=== PATIENT | female | born 1995 | race Caucasian/White ===

== ENCOUNTER → 2021-08-22 12:48 | Outpatient (CLI) | payer OTHER, SELFPAY ==
--- NOTE | 2021-08-22 | DI.RAD.S_ITS ---
PROCEDURE: FL HIP INJECTION MR/CT LT INDICATIONS: left hip pain TECHNIQUE: The indications, alternatives, benefits, risks, and complications of the procedure were explained to the patient. Written informed consent was obtained and placed in the chart. The hip was examined fluoroscopically with the legs fixed in slight internal rotation, and a site for needle placement chosen for entry into the hip joint from an anterior approach. Care was taken to locate the common femoral artery and vein beforehand. The skin was prepped and draped in a sterile fashion, and 1% Lidocaine infiltrated from skin down to joint capsule. A spinal needle was inserted into the joint, and a small amount of iodinated contrast media injected to confirm intra-articular placement of the needle tip. This was followed by approximately 10 mL dilute solution of a gadolinium containing MR contrast agent. The needle was removed and a dressing was applied. The patient was given postprocedural instructions and sent to the MR suite for imaging. COMPARISON: [facility], , MR HIP LT W CON, 08/22/2021, 13:57. FINDINGS: A single fluoroscopic spot image demonstrates intra-articular location of injected iodinated contrast. IMPRESSION: Successful fluoroscopically guided administration of dilute Gadolinium solution into the hip joint for MR arthrogram. Dictated by: Eduin Gordon M.D. on 08/23/2021 at 14:42 Approved by: Eduin Gordon M.D. on 08/23/2021 at 14:42
--- NOTE | 2021-08-22 | DI.MRI.S_ITS ---
PROCEDURE: MR HIP LT W CON INDICATIONS: left hip pain TECHNIQUE: After the administration of 10 mL of dilute intra-articular Gadolinium contrast, coronal STIR of the bony pelvis; coronal and oblique axial T1 spin echo with fat saturation, axial T2 fast spin echo with fat saturation, sagittal T1 spin echo with and without fat saturation of the involved hip. COMPARISON: [facility], , [place] HIP INJECTION MR/CT LT, 08/22/2021, 13:27. FINDINGS: Image quality: Excellent. Bones and joints: Bone marrow of the pelvic ring and proximal femurs show normal signal throughout. No intraosseous lesions or fractures. No avascular necrosis of the femoral heads. The visualized lower lumbar spine appears normally aligned. Tendons and ligaments: The gluteus medius and minimus tendons appear intact, without associated muscle atrophy. The proximal iliotibial band appears intact. The iliopsoas tendon appears intact, without adjacent bursal fluid collections. The origin of the hamstring tendon is intact at the ischial tuberosity. The direct and indirect heads of the rectus femoris muscle origin appear intact. T1-hyperintense material within the anterior musculature is consistent with extravasation during the arthrogram injection. Labrum and cartilage: The acetabular labrum appears intact in the absence of intra-articular contrast. Cartilage surface of the femoral head appears of normal thickness. There is normal morphology of the femoral head and the acetabulum. Soft tissues: Visualized muscles demonstrate normal bulk and internal signal. Quadratus femoris muscle demonstrates no internal edema to suggest ischiofemoral impingement. The proximal sciatic neurovascular bundle appears intact. Probable left unicorn or it appearance of the uterus. Ovaries are unremarkable. The bladder is decompressed. No acute abnormality is seen in the included pelvis. IMPRESSION: 1. No acetabular labral tear or cartilage defect is seen in the left hip. 2. No acute trabecular bone injury. The visualized ligaments and tendons are intact. Dictated by: Sal Arenas M.D. on 08/22/2021 at 17:03 Approved by: Sal Arenas M.D. on 08/22/2021 at 17:11
== END ==
PROVIDERS: Referring Provider Orthopaedic Surgery; Visit Provider Orthopaedic Surgery
DX: M25.552 Pain in left hip (principal)
CPT/HCPCS: 27093; 73722; 77002

== ENCOUNTER → 2021-09-20 12:56 | Outpatient (CLI) | payer OTHER, SELFPAY ==
--- NOTE | 2021-09-20 | DI.RAD.S_ITS ---
PROCEDURE: FL JOINT INJECTION LARGE LT INDICATIONS: Pain in left hip COMPARISON: [facility], MR, MR HIP LT W CON, 08/22/2021, 13:57. TECHNIQUE: The indications, alternatives, benefits, risks, and complications of the procedure were explained to the patient. Written informed consent was obtained and placed in the chart. The patient was placed in an appropriate position on the fluoroscopy table, and a site was chosen for percutaneous access under fluoroscopic guidance. The site was prepped and draped in a sterile fashion. Local anesthetic was administered using a 1% lidocaine solution. A hypodermic or spinal needle was then used to access the symptomatic joint. Intra-articular location of the needle tip was confirmed by injecting a small amount of contrast, followed by steroid administration. The needle was then withdrawn, and a bandage applied to the puncture site. FINDINGS: Joint injected: Left hip Medications injected: 4 mL of 40 mg/mL Kenalog and 0.5% Ropivacaine mixture. Patient's pain before injection: 5 out of 10. Patient's pain after injection: 2 out of 10. Complications: None. IMPRESSION: Successful fluoroscopically guided administration of steroid and anaesthetic solution into the left hip joint. Dictated by: Ulices Gomez M.D. on 09/20/2021 at 14:09 Approved by: Ulices Gomez M.D. on 09/20/2021 at 14:11
== END ==
PROVIDERS: PCP Student in an Organized Health Care Education/Training Program; Referring Provider Orthopaedic Surgery; Visit Provider Orthopaedic Surgery
DX: M25.552 Pain in left hip (principal)
CPT/HCPCS: 20610; 77002; J2795

== ENCOUNTER 2021-10-07 03:13 | Observation (INO) | payer OTHER, SELFPAY ==
[2021-10-07] VITALS (19 sets, daily range): BP systolic 74–136; BP diastolic 43–76; PULSE 60–102; RESP 12–24; TEMP 36.3–37.7; O2SAT 91–100; BMI 31.1
--- NOTE | 2021-10-07 | PATH_ITS ---
[facility] Accession Number: [id number] . 01 Material submitted: . gallbladder - GALLBLADDER . 01 Clinical history: . ABD. PAIN . 01 Diagnosis: Gallbladder, Cholecystectomy: Mild chronic cholecystitis, cholesterolosis, and cholelithiasis. One benign cystic duct lymph node (0). MRV 10/11/2021 0838 Local . 01 Electronically signed: . Ifeoma Mclaughlin MD, Pathologist NPI- [id number] . 01 Gross description: . Received in formalin labeled with the patient's name and gallbladder consists of an intact gallbladder measuring 6.3 x 2.5 x 2.3 cm with smooth, green, glistening serosa, and a roughened, unremarkable hepatic surface. The cystic duct is received closed with a clamp, and is inked blue, and a pericystic lymph node candidate is identified measuring 0.5 cm in greatest dimension. Opening the specimen reveals the lumen to be filled with green, viscous bile and multiple yellow-brown, roughened stones measuring up to 2.4 cm in greatest dimension. The mucosa is green, velvety, and focally denuded, but no yellow discoloration or polyps are identified. The silverman average 0.3 cm thick, and no lesions are identified. Wearing Apparel Assembler sections to include the cystic duct margin, lymph node candidate, and full-thickness sections are submitted in cassette A1. ([id number]) /MRV 10/10/2021 1641 Local . 01 Pathologist provided ICD-10: K81.1, K80.60 . 01 CPT . 680535 Specimen Comment: A courtesy copy of this report has been sent to [phone] Performed at: 01 [facility] [address] [place] [address] [address], [place], [place] [id number] MD Mick Keys MD Phone: [phone]
--- NOTE | 2021-10-07 03:17 | ED.ABDPAIN ---
HPI - Abdominal Pain General Chief Complaint: Abdominal Pain Stated Complaint: ABD. PAIN Time Seen by Provider: 10/07/21 03:17 History of Present Illness HPI narrative: 26-year-old female nonsmoker presents with a chief complaint of severe epigastric pain that started after eating a dinner of pasta last evening. She states the pain is severe and worse with any motion, specifically noting bumps in the road on her drive in made the pain significantly worse. She denies any radiation of the pain and states remaining still seems to help. She has had 4 episodes of emesis the last of which had some blood streaks to it. She denies any history of the same states that she had recently been told she has gallstones. She denies fever or chills. She has not had any alcohol in many months. She denies any chance of as she has not had intercourse in some time. She denies any change in her bowel habits such as constipation or diarrhea. She has no dysuria, frequency or urgency. Her last food was at about 10:00 p.m. and states that with some saltine crackers and she has been having some sips of water over the past few hours Related Data Allergies Allergy/AdvReac Type Severity Reaction Status Date / Time No Known Drug Allergies Allergy Verified 10/07/21 03:43 Review of Systems Review of Systems Narrative: GENERAL: See HPI HEENT: Denies sinus pain, ear pain, sore throat, difficulty swallowing, dizziness. RESPIRATORY: Denies dyspnea, cough, wheezing, hemoptysis, sputum. CARDIOVASCULAR: Denies chest pain, palpitations, orthopnea, edema, GASTROINTESTINAL: See HPI : Denies dysuria, frequency, incontinence, hematuria, urinary retention. MUSCULOSKELETAL: denies weakness, joint pain, or bony pain SKIN: Denies rash, skin lesions, or other NEUROLOGIC: Denies weakness, headache, numbness, change in speech, confusion, seizures, incoordination. PSYCHIATRIC: No concerning psychosocial issues. 12 point review of systems is negative except for those stated above Exam Narrative Exam Narrative: GENERAL: [26] year old patient appears stated age. Well-developed patient, in obvious distress, in pain, tearful, holding an emesis bag HEAD: Atraumatic. Normocephalic. EYES: Pupils equal round and reactive. Extraocular motions intact. No scleral icterus. No injection or drainage. ENT: Nose without bleeding, purulent drainage. Throat without erythema, tonsillar hypertrophy or exudate. Airway patent. NECK: Trachea midline. Non tender CARDIOVASCULAR: Regular rate and rhythm without murmurs, gallops, or rubs. RESPIRATORY: Clear to auscultation. Breath sounds equal bilaterally. No wheezes, rales, or rhonchi. GASTROINTESTINAL: Abdomen soft, significant tenderness in the epigastrium and right upper quadrant to palpation, nondistended. EXTREMITIES: No edema or joint tenderness. BACK: Nontender without deformity or crepitance. No flank tenderness. NEURO: AOx3. SKIN: No rash or erythema of visible areas Initial Vital Signs Initial Vital Signs: Vital Signs Pulse Rate 101 H 10/07/21 03:15 Respiratory Rate 24 10/07/21 03:15 Blood Pressure 136/76 10/07/21 03:15 Pulse Oximetry 99 10/07/21 03:15 Oxygen Delivery Method 10/07/21 03:15 Course Orders Ordered: ED Orders 10/07/21 03:23 US abdomen limited Stat COVID19 -Nasal RAPID/Pre-Proc Stat 10/07/21 03:30 Complete Blood Count AUTO DIFF Stat Comprehensive Metabolic Panel Stat Lipase Stat Discontinued Medications Hydromorphone HCl (Hydromorphone 0.5 Mg Inj) 0.5 mg IV NOW ONE Stop: 10/07/21 03:23 Last Admin: 10/07/21 03:34 Dose: 0.5 mg Documented By: ARIA Sodium Chloride (Normal Saline 0.9%) 1,000 mls @ 1,000 mls/hr IV BOLUS ONE Stop: 10/07/21 04:21 Last Admin: 10/07/21 03:35 Dose: 1,000 mls/hr Documented By: ARIA Ondansetron HCl (Ondansetron 4 Mg/2 Ml Inj) 4 mg IV NOW ONE Stop: 10/07/21 03:23 Last Admin: 10/07/21 03:35 Dose: 4 mg Documented By: ARIA Vital Signs Vital signs: Vital Signs - 8 hr 10/07/21 03:15 Pulse Rate 101 H Respiratory Rate 24 Blood Pressure 136/76 Pulse Oximetry 99 Oxygen Delivery Method Room Air MDM - Abdominal Pain Lab Data Result diagrams: 10/07/21 03:30 10/07/21 03:30 Labs: Lab Results 06/25/22 06/25/22 Range/Units 03:30 03:30 WBC 12.5 H (4.5-11.0) X10^3/uL RBC 4.32 (4.0-5.2) X10^6/uL Hgb 12.5 (12.0-16.0) g/dL Hct 36.7 (36-46) % MCV 84.9 (80-100) fL MCH 28.8 (26-34) PG MCHC 33.9 (30-36) % RDW 13.1 (11.6-14.8) % Plt Count 376 (150-400) X10^3/uL Neut % (Auto) 61.2 (50-75) % Lymph % (Auto) 28.3 (25-40) % [place] % (Auto) 8.9 (3-14) % Eos % (Auto) 0.7 L (2-4) % Baso % (Auto) 0.9 (0-2) % Neut # (Auto) 7600 H (4331-8027) /uL Lymph # (Auto) 3500 (4822-8857) /uL [place] # (Auto) 1100 H (0-900) /uL Eos # (Auto) 100 (0-450) /uL Baso # (Auto) 100 (0-100) /uL Sodium 135 L (137-145) mmol/L Potassium 4.0 (3.4-5.1) mmol/L Chloride 101 (98-107) mmol/L Carbon Dioxide 22 (22-32) mmol/L BUN 14 (7-17) mg/dL Creatinine 0.66 (0.52-1.04) mg/dL Estimated GFR > 60 (>60) mL/min BUN/Creatinine Ratio 21.2 (6-22) Glucose 123 H (70-100) mg/dL Calcium 9.2 (8.4-10.2) mg/dL Total Bilirubin 0.6 (0.2-1.3) mg/dL AST 27 (14-36) IU/L ALT 28 (<35) IU/L Alkaline Phosphatase 75 (38-126) U/L Total Protein 8.2 (6.3-8.2) g/dL Albumin 4.7 (3.5-5.0) g/dL Globulin 3.5 (1.7-4.1) g/dL Albumin/Globulin Ratio 1.3 (1.0-2.8) Lipase 67 (23-300) U/L Discharge Plan Departure Patient Disposition: Admitted as Observation Admit Date/Time: 10/07/21 04:16 Admit Provider: Stuart Mcgill
--- NOTE | 2021-10-07 03:23 | DI.US.S_ITS ---
PROCEDURE: US ABDOMEN LIMITED INDICATIONS: SEVERE EPIGASTRIC PAIN TECHNIQUE: Real-time scanning was performed of the right upper quadrant, with image documentation. COMPARISON: None. FINDINGS: Liver: Liver is normal in size and homogeneous in echotexture. Gallbladder: Gallbladder is dilated. Wall thickness is normal. Positive sonographic Edmonds sign. No pericholecystic fluid. There are multiple calcified gallstones include new infected stone at the gallbladder neck measuring up to 1.8 centimeters. Biliary ducts: Intrahepatic bile ducts are non-dilated. Extrahepatic bile duct caliber measures 4.9 mm. Normal is 6-7 mm or less in diameter, or 10 mm or less post-cholecystectomy. Pancreas: Visualized portions of the proximal pancreas are sonographically normal. Miscellaneous: No free abdominal fluid. IMPRESSION: Borderline hydropic gallbladder with cholelithiasis and positive sonographic Edmonds sign is equivocal it concerning for cholecystitis. No biliary dilation. Agree with preliminary report. Dictated by: Js Melton D.O. on 10/07/2021 at 7:08 Approved by: Js Melton D.O. on 10/07/2021 at 7:12
[2021-10-07] MEDS: HYDROMORPHONE 0.5 MG INJ IV ×3 (03:34→14:12)
[2021-10-07] MEDS: ONDANSETRON 4 MG/2 ML INJ IV ×2 (03:35→11:25)
[2021-10-07] MEDS: SODIUM CHLORIDE 0.9% 1,000 ML 1000 ML IV (03:35)
[2021-10-07 03:43] LABS: Add Manual Diff / Slide Review NO; Basophils Absolute Auto 100 /uL (0-100); Basophils Percent Auto 0.9 % (0-2); Eosinophils Absolute Auto 100 /uL (0-450); Eosinophils Percent Auto 0.7 % (2-4); Hematocrit 36.7 % (36-46); Hemoglobin 12.5 g/dL (12.0-16.0); Lymphocytes Absolute Auto 3500 /uL (1100-4500); Lymphocytes Percent Auto 28.3 % (25-40); Mean Corpuscular HGB Conc 33.9 % (30-36); Mean Corpuscular Hemoglobin 28.8 PG (26-34); Mean Corpuscular Volume 84.9 fL (80-100); Monocytes Absolute Auto 1100 /uL (0-900); Monocytes Percent Auto 8.9 % (3-14); Neutrophils Absolute Auto 7600 /uL (1500-7000); Neutrophils Percent Auto 61.2 % (50-75); Platelet Count 376 X10^3/uL (150-400); Red Blood Cell Count 4.32 X10^6/uL (4.0-5.2); Red Cell Distribution Width 13.1 % (11.6-14.8); White Blood Cell Count 12.5 X10^3/uL (4.5-11.0)
[2021-10-07 03:48] LABS: Alanine Aminotransferase 28 IU/L (<35); Albumin 4.7 g/dL (3.5-5.0); Albumin Globulin Ratio 1.3 (1.0-2.8); Alkaline Phosphatase 75 U/L (38-126); Aspartate Aminotransferase 27 IU/L (14-36); BUN Creatinine Ratio 21.2 (6-22); Bilirubin Total 0.6 mg/dL (0.2-1.3); Blood Urea Nitrogen 14 mg/dL (7-17); Calcium 9.2 mg/dL (8.4-10.2); Carbon Dioxide 22 mmol/L (22-32); Chloride 101 mmol/L (98-107); Estimated Glomerular Filt Rate > 60 mL/min (>60); Globulin 3.5 g/dL (1.7-4.1); Glucose 123 mg/dL (70-100); HEMOLYSIS 18 (0-50); Lipase 67 U/L (23-300); Sodium 135 mmol/L (137-145); Total Protein 8.2 g/dL (6.3-8.2)
[2021-10-07 05:04] LABS: COVID19 -Nasal RAPID Negative (Negative)
[2021-10-07] MEDS: SODIUM CHLORIDE 0.9% 1,000 ML 125 ML IV (05:22)
[2021-10-07] MEDS: PIPERACILLIN/TAZO 4.5 GM in SODIUM CHLORIDE 0.9% 100 ML IV (05:48)
--- NOTE | 2021-10-07 06:52 | PC.NURSE ---
Pt. arrived to the unit at 0445 for cholecystectomy today. Pt. denies pain, and denies nausea. Pt. is a&Ox4 but a little drowsy from Hydromorphone administration while in ER. Oriented to room, bed controls and call light use. Instructed to call for any help to avoid fall, pt. verbalized understanding.
--- NOTE | 2021-10-07 09:22 | P.HP_ITS ---
History of Present Illness History of Present Illness Date Patient Seen: 10/07/21 Time Patient Seen: 09:22 Chief complaint: ABD. PAIN Narrative: 26-year-old healthy woman who presented to the emergency room with right upper quadrant pain last night. Workup was significant for WBC 13, normal total bilirubin and LFTs. Ultrasound right upper quadrant demonstrates hydropic gallbladder with a 2 cm stone lodged within the neck of the gallbladder. Patient History Family & Social History Social History: household members none Prior Living Arrangements House Safety & Behavioral: Feels Safe in Current Yes Environment Been Physically Hurt or No Threatened By a Person Tobacco & Substance use: Tobacco type e-cigarettes Smoking Status Current some day smoker alcohol intake current alcohol intake frequency holiday/special occasion Substance Use Type does not use Meds Home Medications and Allergies Home Medications Medication Instructions Recorded Confirmed Type duloxetine 40 mg capsule,delayed 40 mg PO DAILY 10/07/21 10/07/21 History release meloxicam 15 mg tablet 15 mg PO PRN PRN chronic left hip 10/07/21 10/07/21 History pain Allergies Allergy/AdvReac Type Severity Reaction Status Date / Time No Known Drug Allergies Allergy Verified 10/07/21 03:43 Exam Vital Signs (past 8 hours): - 10/07/21 03:15 10/07/21 03:45 10/07/21 04:00 Temperature Pulse Rate 101 H 86 Respiratory Rate 24 Blood Pressure 136/76 116/66 Pulse Oximetry 99 95 Oxygen Delivery Method Room Air Oxygen Flow Rate 10/07/21 04:00 10/07/21 04:30 10/07/21 04:30 Temperature Pulse Rate 60 90 Respiratory Rate Blood Pressure 121/64 Pulse Oximetry 100 97 Oxygen Delivery Method Oxygen Flow Rate 10/07/21 06:27 10/07/21 08:00 Temperature 99.9 F H Pulse Rate 87 Respiratory Rate 18 Blood Pressure 83/51 L Pulse Oximetry 95 Oxygen Delivery Method Room Air Oxygen Flow Rate 0 Oxygen Delivery Method Room Air Oxygen Flow Rate 0 Narrative Exam Narrative: General adult woman alert oriented no acute distress Chest nonlabored respirations Abdomen positive Edmonds sign. Objective Labs Result Diagrams: 10/07/21 03:30 10/07/21 03:30 Labs: Laboratory Results - last 24 hr 10/07/21 10/07/21 10/07/21 03:30 03:30 04:27 WBC 12.5 H RBC 4.32 Hgb 12.5 Hct 36.7 MCV 84.9 MCH 28.8 MCHC 33.9 RDW 13.1 Plt Count 376 Neut % (Auto) 61.2 Lymph % (Auto) 28.3 [place] % (Auto) 8.9 Eos % (Auto) 0.7 L Baso % (Auto) 0.9 Neut # (Auto) 7600 H Lymph # (Auto) 3500 [place] # (Auto) 1100 H Eos # (Auto) 100 Baso # (Auto) 100 Sodium 135 L Potassium 4.0 Chloride 101 Carbon Dioxide 22 BUN 14 Creatinine 0.66 Estimated GFR > 60 BUN/Creatinine Ratio 21.2 Glucose 123 H Calcium 9.2 Total Bilirubin 0.6 AST 27 ALT 28 Alkaline Phosphatase 75 Total Protein 8.2 Albumin 4.7 Globulin 3.5 Albumin/Globulin Ratio 1.3 Lipase 67 Nasal Screen MRSA (PCR) SARS-CoV-2 (PCR) Negative 10/07/21 06:40 WBC RBC Hgb Hct MCV MCH MCHC RDW Plt Count Neut % (Auto) Lymph % (Auto) [place] % (Auto) Eos % (Auto) Baso % (Auto) Neut # (Auto) Lymph # (Auto) [place] # (Auto) Eos # (Auto) Baso # (Auto) Sodium Potassium Chloride Carbon Dioxide BUN Creatinine Estimated GFR BUN/Creatinine Ratio Glucose Calcium Total Bilirubin AST ALT Alkaline Phosphatase Total Protein Albumin Globulin Albumin/Globulin Ratio Lipase Nasal Screen MRSA (PCR) Negative for mrsa SARS-CoV-2 (PCR) Assessment & Plan Assessment and plan (1) Acute cholecystitis: Status: Acute Assessment & Plan narrative: 26-year-old healthy woman with symptoms and radiographic evidence of acute cholecystitis. No radiographic or laboratory evidence of bile duct obstruction. I recommended that we proceed with laparoscopic cholecystectomy. Technical overview of the operation was discussed with the patient. Operative risks in cluding bleeding, infection, damage to surrounding structures, bile duct injury/leak, conversion to open were discussed. Her questions have been answered and she is in agreement with this plan Time Spent With Patient Critical Care time: I spent a total of [] minutes of critical care time on this patient's care today; this time is exclusive of procedural time.
[2021-10-07] MEDS: LACTATED RINGERS 1,000 ML 42 ML IV ×2 (09:31→11:25)
[2021-10-07] MEDS: CEFAZOLIN 2 GM/20 ML SYRINGE IV (09:58)
--- NOTE | 2021-10-07 10:07 | SUR.OPER ---
Supine on padded OR bed, head on pillow, safety belt at thigh, left arm padded and tucked at side. Right arm secured on padded arm board <90 degrees abduction. Legs uncrossed. Padded footboard in place. Tape over blanket to secure lower legs.
[2021-10-07] MEDS: BUPIVACAINE 0.25% (PF) VIAL 30 ML INJ (10:14)
--- NOTE | 2021-10-07 11:07 | PM.OP.1 ---
Operative Date/Time/Diagnoses Date of procedure: 10/07/21 Time of procedure: 11:07 Pre-op diagnosis: acute cholecystitis Post-op diagnosis: same Procedure & Clinicians Procedure: laparoscopic cholecystectomy Same procedure as scheduled: Yes Indications: symptoms and radiographic findings consistent with acute cholecystitis Surgeon: Stuart Mcgill Click Yes if Unassisted: Yes Anesthesia Type: General Operative Notes Findings: Critical view of safety established. Mild cholecystitis. Large gallstone in neck of gallbladder Specimen(s): other (gallbladder) Estimated Blood Loss (mL): 20 Procedure in detail: The patient was placed supine on the table and bilateral lower extremity compression devices were applied. Anesthesia was induced they were intubated with an endotracheal tube and received 2g of Ancef. A time-out was performed. They were prepped and draped in sterile fashion. An infraumbilical incision was made, the umbilical stalk was elevated and the fascia was sharply incised entering the abdomen atraumatically. A blunt tip 12mm balloon trocar was then inserted, pneumoperitoneum was established and inspection of the abdomen demonstrated no evidence of injury. They were placed head up and right side up and then a 11 mm port was placed high in the epigastrium and two 5mm in the right upper quadrant. The gallbladder was grasped by the fundus and retracted over the liver and retracted laterally by the infundibulum. Using electrocautery the lateral plane between the gallbladder and the liver was opened towards the fundus. The gallbladder was then retracted laterally and the medial plane was developed in the same manner. With the gallbladder mobilized the bottom of the cystic plate was visualized. The hepatocystic triangle was meticulosly skeletonized of all fat and fibrous tissue from both the front and the back. Only two structures were then clearly seen entering the gallbladder the cystic duct and the cystic artery. With the critical view of safety fully established the cystic duct was clipped twice proximally and once distally using the 10 mm Weck hemo clip applied under direct visualization and then sharply divided. The cystic artery was divided in the same fashion. The gallbladder was removed from the liver bed using electro cautery. The liver bed was then inspected for hemostasis and this was achieved. The abdomen was irrigated with sterile saline and inspection was made that showed the clips in good position. The specimen was removed using Endo-Catch. The abdomen was desufflated. The umbilical fascia was closed with 0 Vicryl in a [id number] fashion under direct visualization. Skin incisions were irrigated and closed with 4-0 Monocryl. 30 ml of 0.25% bupivacaine was infiltrated into the subcutaneous tissue of the incisions. The wounds were sealed with Dermabond. Patient emerged from anesthesia was extubated and transferred to recovery in stable condition. The sponge and instrument count at the end of the operation was correct. Complications: none Post-operative Condition: stable Disposition: same day surgery
[2021-10-07] MEDS: HYDROMORPHONE 2 MG INJ IV (11:24)
[2021-10-07] MEDS: OXYCODONE IR 5 MG TABLET PO ×2 (11:39→17:52)
--- NOTE | 2021-10-07 12:46 | CM.DANOTE ---
DCP: Case received, EMR reviewed. Checked on patient. They were getting ready to take her down to OR for lab rachelle. Placed name of this DC associate merchandise planner on board in patient's room. Was able to complete assessment based upon information currently available. Patient is a 26 year old female who admitted early this morning to the care of the hospitalist team. PCP: Dr. Duran. Payer: Amadeo Pulliam. Patient came to the hospital via private vehicle secondary to severe epigastric pain. According to notes, symptoms occurred after eating her dinner last evening. Patient also noted about 4 episodes of emesis with some blood streaks to it. Patient had noted WBC of 13. She was diagnosed with acute cholecystitis. She is having a laparoscopic cholecystectomy today. Attempted to meet with patient, she was alert, she was getting ready to go down to the OR. [place] be [place]. She lives in [place], is single. P: DCP to continue to follow. Patient should be able to go home when she is deemed medically stable. Sarah Felix RN/Table Keeper Discharge Planning/Care Management CM Discharge Assessment Start: 10/07/21 12:44 Freq: Status: Active Protocol: Document 10/07/21 12:44 (Rec: 10/07/21 12:46 [id number]) Discharge Planning Assessment Assigned Animal Tech Sarah Felix RN/Table Keeper Advance Directives? No Advance Directives on File No History Provided By Patient,Medical Record Prior Living Arrangements House Household Members none Type of transporation used prior to Drives own vehicle admit Independent with ADL's Yes Is patient alert and oriented? Yes Caregiver for Another No Barriers to Discharge No Discharge Plan Home Transportation Arrangement Family or friends Referrals Initiated None needed Whiteboard Updated in Patient Room with Yes name and ext. # of Animal Tech Review Status In Process Next Review Type Continued Stay Review
== END 2021-10-07 18:34 | disposition home or self-care (01) ==
LOC: ED 03:19 → AC 04:18 → ICU 05:00
PROVIDERS: Admitting Provider Surgery; Emergency Provider Emergency Medicine; PCP Student in an Organized Health Care Education/Training Program; Referring Provider Emergency Medicine; Visit Provider Surgery
PROC: 0FT44ZZ Resection of Gallbladder, Percutaneous Endoscopic Approach (ICD-10-PCS; CPT 47562; principal; 2021-10-07 10:00)
DX: K80.00 Calculus of gallbladder with acute cholecystitis without obstruction (principal); Z20.822 Contact with and (suspected) exposure to COVID-19; Z72.0 Tobacco use
CPT/HCPCS: 47562; 36415; 76705; 80053; 81025; 83690; 85025; 87040; 87635; 87797; 96361; 96365; 96375; 96376; 99219; 99284; C9803; G0378; J0330; J0690; J1100; J1170; J1885; J2250; J2405; J2543; J2704; J3010

== ENCOUNTER 2021-10-09 07:30 | Inpatient (IN) | payer OTHER, SELFPAY ==
[2021-10-07 06:28] VITALS: BMI 31.1
[2021-10-09] VITALS (16 sets, daily range): BP systolic 108–135; BP diastolic 58–92; PULSE 80–127; RESP 18–24; TEMP 35.9–37.7; O2SAT 87–100; BMI 32.9; BMI 32.2
[2021-10-09 07:54] LABS: Add Manual Diff / Slide Review NO; Basophils Absolute Auto 100 /uL (0-100); Basophils Percent Auto 0.7 % (0-2); Eosinophils Absolute Auto 0 /uL (0-450); Eosinophils Percent Auto 0.3 % (2-4); Hematocrit 35.4 % (36-46); Hemoglobin 11.9 g/dL (12.0-16.0); Lymphocytes Absolute Auto 3400 /uL (1100-4500); Lymphocytes Percent Auto 22.3 % (25-40); Mean Corpuscular HGB Conc 33.6 % (30-36); Mean Corpuscular Hemoglobin 28.7 PG (26-34); Mean Corpuscular Volume 85.3 fL (80-100); Monocytes Absolute Auto 800 /uL (0-900); Monocytes Percent Auto 5.5 % (3-14); Neutrophils Absolute Auto 10800 /uL (1500-7000); Neutrophils Percent Auto 71.2 % (50-75); Platelet Count 373 X10^3/uL (150-400); Red Blood Cell Count 4.15 X10^6/uL (4.0-5.2); Red Cell Distribution Width 13.3 % (11.6-14.8); White Blood Cell Count 15.2 X10^3/uL (4.5-11.0)
--- NOTE | 2021-10-09 07:55 | ED_ITS ---
HPI - Abdominal Pain General Chief Complaint: Abdominal Pain Stated Complaint: Fever, vomiting. had Gallbladder removal Sat Time Seen by Provider: 10/09/21 07:45 Source: patient Mode of arrival: Wheelchair History of Present Illness HPI narrative: Patient is a 26-year-old female status post cholecystectomy day 2. She was diagnosed with acute cholecystitis in the ED on October 07, she was discharged the same day. She said yesterday was fine. She took her pain medication she was passing gas she was eating. She woke up suddenly at 4:30 a.m. this morning with severe intense pain. She took her pain medicine did not work and came to [facility] ED for evaluation. She is in obvious distress with severe pain in her abdomen. She has had low-grade temp at home of 99. She is afebrile here. No nausea or vomiting. Related Data Home Medications Medication Instructions Recorded Confirmed duloxetine 40 mg capsule,delayed 40 mg PO DAILY 10/07/21 10/09/21 release meloxicam 15 mg tablet 15 mg PO DAILY PRN Pain (Scale 10/09/21 10/09/21 Score 4-6) Previous Rx's Medication Instructions Recorded oxycodone 5 mg tablet 5 mg PO Q6H PRN pain #20 tabs 10/07/21 Allergies Allergy/AdvReac Type Severity Reaction Status Date / Time No Known Drug Allergies Allergy Verified 10/07/21 03:43 Review of Systems Review of Systems Narrative: GENERAL: Denies chills, fatigue, malaise, fever, sweats, travel HEENT: Denies sinus pain, ear pain, sore throat, difficulty swallowing, neck pain RESPIRATORY: Denies dyspnea, cough, wheezing, hemoptysis, sputum. CARDIOVASCULAR: Denies chest pain, palpitations, orthopnea, edema GASTROINTESTINAL: See HPI : Denies dysuria, frequency, incontinence, hematuria, urinary retention, flank pain. MUSCULOSKELETAL: Denies weakness, joint pain, or bony pain SKIN: No rash, no erythema, no pruritus NEUROLOGIC: Denies weakness, dizziness, headache, numbness, change in speech, co nfusion PSYCHIATRIC: No concerning psychosocial issues. 12 point review of systems is negative except for those stated above and HPI Patient History Social History household members: none Smoking Status: Current some day smoker alcohol intake: current Smoking Status: Current some day smoker alcohol intake frequency: holidays/special occasions only Substance Use Type: does not use Exam Initial Vital Signs Initial Vital Signs: Vital Signs Temperature 96.6 F L 10/09/21 07:30 Pulse Rate 87 10/09/21 07:30 Respiratory Rate 20 10/09/21 07:30 Blood Pressure 116/68 10/09/21 07:30 Pulse Oximetry 100 10/09/21 07:30 Oxygen Delivery Method 10/09/21 07:30 GENERAL: 26-year-old female in severe pain and discomfort and in no acute distress. HEENT: Head atraumatic,EOMI, pupils reactive, face symmetric, moist mucous membranes CARDIOVASCULAR: Regular rate and rhythm without murmurs, rubs or gallops. RESPIRATORY: Breath sounds equal bilaterally, no wheezes rales or rhonchi. ABDOMEN: Soft severe pain in right upper cough quadrant and epigastric area to extreme very light touch. No distension incision sites are clean and dry with Steri-Strips in place. Mild lower abdominal bruising : No CVA tenderness EXTREMITIES: Normal range of motion, no clubbing or edema. Neurovascularly intact NEUROLOGICAL: Alert and oriented x4 SKIN: Warm, dry, no laceration, no petechiae, no rashes or lesions. Course Orders Ordered: Hydrocodone Bitart/Acetaminophen (Hydrocodone/Acet 5/325 Tablet) 1 tab PO Q4HR PRN PRN Reason: Pain, Moderate (4-6) Last Admin: 10/09/21 17:49 Dose: 1 tab Documented By: MANINDER Hydromorphone HCl (Hydromorphone 0.5 Mg Inj) 0.5 mg IV Q2H PRN PRN Reason: Breakthrough pain only (8-10) Last Admin: 10/09/21 17:16 Dose: 0.5 mg Documented By: MANINDER Lactated Ringer's (Lactated Ringers) 1,000 mls @ 125 mls/hr IV CONT MINOR Last Admin: 10/09/21 14:38 Dose: 125 mls/hr Documented By: MANINDER Naloxone HCl (Naloxone 0.4 Mg/Ml Vial) 0.2 mg IV Q2MIN PRN PRN Reason: Opiate Reversal Ondansetron HCl (Ondansetron 4 Mg/2 Ml Inj) 4 mg IV Q8HR PRN PRN Reason: Nausea And Vomiting Discontinued Medications Hydromorphone HCl (Hydromorphone 1 Mg Inj) 1 mg IV NOW ONE Stop: 10/09/21 08:11 Last Admin: 10/09/21 08:23 Dose: 1 mg Documented By: MACK Hydromorphone HCl (Hydromorphone 0.5 Mg Inj) 1 mg IV NOW ONE Stop: 10/09/21 10:13 Last Admin: 10/09/21 10:20 Dose: 1 mg Documented By: MACK Ketorolac Tromethamine (Ketorolac 30 Mg/Ml Vial) 15 mg IV NOW ONE Stop: 10/09/21 07:47 Last Admin: 10/09/21 07:59 Dose: Not Given Documented By: CHEYENNE Ketorolac Tromethamine (Ketorolac 30 Mg/Ml Vial) 15 mg IV NOW ONE Stop: 10/09/21 11:06 Last Admin: 10/09/21 11:23 Dose: 15 mg Documented By: CHEYENNE Lorazepam (Lorazepam 2 Mg/Ml Inj) 0.5 mg IV NOW ONE Stop: 10/09/21 08:44 Last Admin: 10/09/21 08:55 Dose: 0.5 mg Documented By: MACK Morphine Sulfate (Morphine 4 Mg/Ml Inj) 4 mg IV NOW ONE Stop: 10/09/21 07:57 Last Admin: 10/09/21 08:00 Dose: 4 mg Documented By: CHEYENNE Ondansetron HCl (Ondansetron 4 Mg/2 Ml Inj) 4 mg IV NOW ONE Stop: 10/09/21 07:47 Last Admin: 10/09/21 08:00 Dose: 4 mg Documented By: CHEYENNE Vital Signs Vital signs: Vital Signs - 8 hr 10/09/21 07:30 10/09/21 07:36 10/09/21 07:37 Temperature 96.6 F L Pulse Rate 87 106 H 102 H Respiratory Rate 20 Blood Pressure 116/68 Pulse Oximetry 100 95 97 Oxygen Delivery Method Room Air Oxygen Flow Rate 10/09/21 07:38 10/09/21 08:00 10/09/21 08:02 Temperature Pulse Rate 97 H Respiratory Rate 20 Blood Pressure 116/68 108/58 L Pulse Oximetry 99 Oxygen Delivery Method Oxygen Flow Rate 10/09/21 08:02 10/09/21 09:03 10/09/21 09:05 Temperature 98.5 F Pulse Rate 93 H 127 H Respiratory Rate 24 22 Blood Pressure 129/92 H Pulse Oximetry 99 87 L 95 Oxygen Delivery Method Room Air Nasal Cannula Oxygen Flow Rate 2 MDM - Abdominal Pain Lab Data Result diagrams: 10/09/21 17:30 10/09/21 17:30 Labs: Lab Results 10/09/21 10/09/21 10/09/21 Range/Units 07:40 07:40 07:58 WBC 15.2 H (4.5-11.0) X10^3/uL RBC 4.15 (4.0-5.2) X10^6/uL Hgb 11.9 L (12.0-16.0) g/dL Hct 35.4 L (36-46) % MCV 85.3 (80-100) fL MCH 28.7 (26-34) PG MCHC 33.6 (30-36) % RDW 13.3 (11.6-14.8) % Plt Count 373 (150-400) X10^3/uL Neut % (Auto) 71.2 (50-75) % Lymph % (Auto) 22.3 L (25-40) % [place] % (Auto) 5.5 (3-14) % Eos % (Auto) 0.3 L (2-4) % Baso % (Auto) 0.7 (0-2) % Neut # (Auto) 76966 H (1459-6610) /uL Lymph # (Auto) 3400 (2854-0283) /uL [place] # (Auto) 800 (0-900) /uL Eos # (Auto) 0 (0-450) /uL Baso # (Auto) 100 (0-100) /uL Sodium 139 (137-145) mmol/L Potassium 3.5 (3.4-5.1) mmol/L Chloride 101 (98-107) mmol/L Carbon Dioxide 31 (22-32) mmol/L BUN 10 (7-17) mg/dL Creatinine 0.75 (0.52-1.04) mg/dL Estimated GFR > 60 (>60) mL/min BUN/Creatinine Ratio 13.3 (6-22) Glucose 140 H (70-100) mg/dL Lactate 2.0 (0.7-2.1) mmol/L Calcium 9.0 (8.4-10.2) mg/dL Total Bilirubin 0.8 (0.2-1.3) mg/dL AST 92 H (14-36) IU/L ALT 102 H (<35) IU/L Alkaline Phosphatase 95 (38-126) U/L Total Protein 8.4 H (6.3-8.2) g/dL Albumin 4.8 (3.5-5.0) g/dL Globulin 3.6 (1.7-4.1) g/dL Albumin/Globulin Ratio 1.3 (1.0-2.8) Lipase 40 (23-300) U/L Procalcitonin (<0.5) ng/mL Serum , Qual (Negative) SARS-CoV-2 (PCR) (Negative) 10/09/21 10/09/21 10/09/21 Range/Units 07:58 07:58 09:01 WBC (4.5-11.0) X10^3/uL RBC (4.0-5.2) X10^6/uL Hgb (12.0-16.0) g/dL Hct (36-46) % MCV (80-100) fL MCH (26-34) PG MCHC (30-36) % RDW (11.6-14.8) % Plt Count (150-400) X10^3/uL Neut % (Auto) (50-75) % Lymph % (Auto) (25-40) % [place] % (Auto) (3-14) % Eos % (Auto) (2-4) % Baso % (Auto) (0-2) % Neut # (Auto) (4777-9980) /uL Lymph # (Auto) (5860-1242) /uL [place] # (Auto) (0-900) /uL Eos # (Auto) (0-450) /uL Baso # (Auto) (0-100) /uL Sodium (137-145) mmol/L Potassium (3.4-5.1) mmol/L Chloride (98-107) mmol/L Carbon Dioxide (22-32) mmol/L BUN (7-17) mg/dL Creatinine (0.52-1.04) mg/dL Estimated GFR (>60) mL/min BUN/Creatinine Ratio (6-22) Glucose (70-100) mg/dL Lactate (0.7-2.1) mmol/L Calcium (8.4-10.2) mg/dL Total Bilirubin (0.2-1.3) mg/dL AST (14-36) IU/L ALT (<35) IU/L Alkaline Phosphatase (38-126) U/L Total Protein (6.3-8.2) g/dL Albumin (3.5-5.0) g/dL Globulin (1.7-4.1) g/dL Albumin/Globulin Ratio (1.0-2.8) Lipase (23-300) U/L Procalcitonin 0.09 (<0.5) ng/mL Serum , Qual Negative (Negative) SARS-CoV-2 (PCR) Negative (Negative) Imaging Data CT scan - abdomen/pelvis: Radiologist's Impression: Signed Patient: Nellie Rajan MR#: [id number] : 1995 Acct:[id number] Age/Sex: 26 / F Date of Service: 10/09/21 Loc: ED Accession Number: [id number] ?? Procedure: CT abdomen pelvis w con Ordering Provider: Brianna Colon D.O. PROCEDURE:? CT ABDOMEN PELVIS W CON ? INDICATIONS:? s/p rachelle x 2 days severe ruq pain ? TECHNIQUE:? After the administration of IV contrast, axial sections were acquired from the lung bases to the pubic symphysis.? Coronal and sagittal reformats were performed.? For radiation dose reduction, the following was used:? automated exposure control, adjustment of mA and/or kV according to patient size. ? COMPARISON:? None. ? FINDINGS:? Image quality:? Excellent.? ? Lung bases:? Streaky opacities are present at the bases bilaterally. Heart:? No significant findings. ? ? ABDOMEN: Liver:? Liver is enlarged with steatosis measuring 16.9 cm. Gallbladder:? Gallbladder is been removed.? There is a small focus of fluid within the gallbladder fossa measuring 1.5 x 1.5 cm.? In addition, minimal perihepatic fluid is present.? Fluid is also tracking between the lateral rectus musculature to with largest dimension measuring 1.5 x 1.8 cm. ? There is stranding within the adjacent subcutaneous fat. Biliary ducts:? Unremarkable.? ? Pancreas:? Unremarkable.? ? Spleen:? Unremarkable.? ? Adrenal Glands:? Unremarkable.? ? Kidneys and Ureters:? Unremarkable.? ? ? Stomach and Bowel:? Stomach, small bowel loops, and colon are nonobstructive.? There is a low-attenuation focus measuring approximately 1.3 x 1.6 cm at the pyloric proximal duodenal C-loop.? Hounsfield units measure 13. Peritoneum:? No abnormal intraperitoneal fluid.? No free air.? ? Ventral Wall: ? There is a density within the umbilical region measuring approximately 4.5 x 4.3 cm, Hounsfield units 63.? Abdominal Nodes:? No retroperitoneal or mesenteric adenopathy by size criteria.? Vessels:? Aorta and inferior vena cava are normal in size.? ? PELVIS: Pelvic Organs:? Unremarkable.? ? Bladder:? Unremarkable.? ? Pelvic Nodes: No enlarged lymph nodes.? Miscellaneous: No inguinal hernias are seen. ? ? ? Bones:? Unremarkable.? IMPRESSION:? ? Cholecystectomy with small amount of fluid in the gallbladder fossa.? While this could be postsurgical, continued short interval follow-up is recommended as biliary leak cannot be excluded on the basis of this exam. ? ? Mild perihepatic fluid as well as fluid extending into the right lateral rectus musculature presumably postoperative.? It is nonenhancing.? However, given inflammatory change within the adjacent subcutaneous fat, recommend close interval follow-up as developing abscess cannot be definitively excluded.? ? Density at the level of the umbilicus with Hounsfield units suggestive of blood.? This may represent hematoma from laparoscopic cholecystectomy. ? Low-attenuation structure within the distal pylorus/duodenal C-loop junction.? This is suspected to represent a more focal appearance of luminal fluid.? However, if pain continues to persist in this region short interval imaging follow-up is recommended.? ? Dictated by: Marsha Lopez M.D. on 10/09/2021 at 8:46 ? ? Approved by: Marsha Lopez M.D. on 10/09/2021 at 9:16 ? MDM Narrative Medical decision making narrative: Patient overall is in severe distress with extreme pain and tenderness. Concern for postoperative complication possibly biliary leak versus perforation. CT fortunately does not show any severe complication but the patient is exquisitely tender. Mild elevation of LFTs normal bilirubin normal alk-phos. [id number] Dr. Wynn surgery has been updated patient's symptoms test results agrees that patient should be brought in for observation and he will see her. Discharge Plan Departure Patient Disposition: Admitted as Observation Clinical Impression: Post-operative pain Admit Date/Time: 10/09/21 10:09 Admit Provider: Conrado Wynn
[2021-10-09 07:59] LABS: Alanine Aminotransferase 102 IU/L (<35); Albumin 4.8 g/dL (3.5-5.0); Albumin Globulin Ratio 1.3 (1.0-2.8); Alkaline Phosphatase 95 U/L (38-126); Aspartate Aminotransferase 92 IU/L (14-36); BUN Creatinine Ratio 13.3 (6-22); Bilirubin Total 0.8 mg/dL (0.2-1.3); Blood Urea Nitrogen 10 mg/dL (7-17); Carbon Dioxide 31 mmol/L (22-32); Chloride 101 mmol/L (98-107); Estimated Glomerular Filt Rate > 60 mL/min (>60); Globulin 3.6 g/dL (1.7-4.1); Glucose 140 mg/dL (70-100); HEMOLYSIS < 15 (0-50); Lipase 40 U/L (23-300); Potassium 3.5 mmol/L (3.4-5.1); Sodium 139 mmol/L (137-145); Total Protein 8.4 g/dL (6.3-8.2)
[2021-10-09] MEDS: ONDANSETRON 4 MG/2 ML INJ IV (08:00)
[2021-10-09] MEDS: MORPHINE 4 MG/ML INJ IV (08:00)
[2021-10-09 08:21] LABS: Pregnancy Test Serum,Qual Negative (Negative)
[2021-10-09] MEDS: HYDROMORPHONE 1 MG INJ IV (08:23)
[2021-10-09 08:24] LABS: Procalcitonin 0.09 ng/mL (<0.5)
--- NOTE | 2021-10-09 08:36 | DI.CT.S_ITS ---
PROCEDURE: CT ABDOMEN PELVIS W CON INDICATIONS: s/p rachelle x 2 days severe ruq pain TECHNIQUE: After the administration of IV contrast, axial sections were acquired from the lung bases to the pubic symphysis. Coronal and sagittal reformats were performed. For radiation dose reduction, the following was used: automated exposure control, adjustment of mA and/or kV according to patient size. COMPARISON: None. FINDINGS: Image quality: Excellent. Lung bases: Streaky opacities are present at the bases bilaterally. Heart: No significant findings. ABDOMEN: Liver: Liver is enlarged with steatosis measuring 16.9 cm. Gallbladder: Gallbladder is been removed. There is a small focus of fluid within the gallbladder fossa measuring 1.5 x 1.5 cm. In addition, minimal perihepatic fluid is present. Fluid is also tracking between the lateral rectus musculature to with largest dimension measuring 1.5 x 1.8 cm. There is stranding within the adjacent subcutaneous fat. Biliary ducts: Unremarkable. Pancreas: Unremarkable. Spleen: Unremarkable. Adrenal Glands: Unremarkable. Kidneys and Ureters: Unremarkable. Stomach and Bowel: Stomach, small bowel loops, and colon are nonobstructive. There is a low-attenuation focus measuring approximately 1.3 x 1.6 cm at the pyloric proximal duodenal C-loop. Hounsfield units measure 13. Peritoneum: No abnormal intraperitoneal fluid. No free air. Ventral Wall: There is a density within the umbilical region measuring approximately 4.5 x 4.3 cm, Hounsfield units 63. Abdominal Nodes: No retroperitoneal or mesenteric adenopathy by size criteria. Vessels: Aorta and inferior vena cava are normal in size. PELVIS: Pelvic Organs: Unremarkable. Bladder: Unremarkable. Pelvic Nodes: No enlarged lymph nodes. Miscellaneous: No inguinal hernias are seen. Bones: Unremarkable. IMPRESSION: Cholecystectomy with small amount of fluid in the gallbladder fossa. While this could be postsurgical, continued short interval follow-up is recommended as biliary leak cannot be excluded on the basis of this exam. Mild perihepatic fluid as well as fluid extending into the right lateral rectus musculature presumably postoperative. It is nonenhancing. However, given inflammatory change within the adjacent subcutaneous fat, recommend close interval follow-up as developing abscess cannot be definitively excluded. Density at the level of the umbilicus with Hounsfield units suggestive of blood. This may represent hematoma from laparoscopic cholecystectomy. Low-attenuation structure within the distal pylorus/duodenal C-loop junction. This is suspected to represent a more focal appearance of luminal fluid. However, if pain continues to persist in this region short interval imaging follow-up is recommended. Dictated by: Marsha Lopez M.D. on 10/09/2021 at 8:46 Approved by: Marsha Lopez M.D. on 10/09/2021 at 9:16
[2021-10-09] MEDS: LORazepam 2 MG/ML INJ 0.5 MG IV (08:55)
[2021-10-09 09:54] LABS: COVID19 -Nasal RAPID Negative (Negative)
[2021-10-09] MEDS: HYDROMORPHONE 0.5 MG INJ 1 MG IV (10:20)
[2021-10-09] MEDS: KETOROLAC 30 MG/ML VIAL 15 MG IV (11:23)
[2021-10-09 12:21] LABS: Appearance Urine UA CLEAR; Bilirubin Urine UA NEGATIVE (NEGATIVE); Color Urine UA YELLOW; Glucose Urine UA NEGATIVE (Negative); Ketones Urine UA NEGATIVE (NEGATIVE); Leukocyte Esterase Urine UA NEGATIVE (NEGATIVE); Nitrite Urine UA NEGATIVE (Negative); Occult Blood Urine UA 3+ (Negative); Protein Urine UA NEGATIVE (Negative); Urobilinogen Urine UA 0.2 E.U./dL (0.2)
[2021-10-09 12:24] LABS: Bacteria Urine None Seen; Culture Indicated Urine Cult Not Indicated; RBC Urine 5-10/HPF (0-5/HPF); WBC Urine None Seen (0-5/HPF)
--- NOTE | 2021-10-09 12:25 | PC.NURSE ---
Admit Note Patient arrived to room 224 from ER at 1207. Independent in room, walked self to bathroom and back. Urine sent for culture. Pt reports pain to upper right abdomen 10/22, reports best it has been is 07/23. Received pain meds in ER prior to transfer. SpO2 95% on RA. HR in the 110-120s. Steri-strips to abdomen intact. Lap sites x4 present. Light purple bruising around lab site at umbilicus extending to the right. BTs hypoactive, denies nausea, abd very tender to the touch. Reports passing flatus. Oriented to call light/bed/tv controls. Call light is within reach.
[2021-10-09] MEDS: LACTATED RINGERS 1,000 ML 125 ML IV ×2 (14:38→21:52)
--- NOTE | 2021-10-09 16:20 | PM.HP.1 ---
History of Present Illness History of Present Illness Date Patient Seen: 10/09/21 Time Patient Seen: 16:21 Chief complaint: Fever, vomiting. had Gallbladder removal Sat Narrative: Nellie is a 26-year-old woman who had a laparoscopic cholecystectomy by Dr. Mcgill two days ago. She was discharged later that day. She developed sudden severe abdominal pain this morning. She came back to the ER and was noted to be tachycardic. A CT scan showed the expected degree of fluid in the gallbladder fossa. Her bilirubin and alkaline phosphatase are normal. Patient History Family & Social History Social History: household members none Prior Living Arrangements Apartment/Condo Safety & Behavioral: Feels Safe in Current Yes Environment Been Physically Hurt or No Threatened By a Person Tobacco & Substance use: Tobacco type e-cigarettes Smoking Status Current some day smoker alcohol intake current alcohol intake frequency holiday/special occasion Substance Use Type does not use Meds Home Medications and Allergies Home Medications Medication Instructions Recorded Confirmed Type duloxetine 40 mg capsule,delayed 40 mg PO DAILY 10/07/21 10/09/21 History release oxycodone 5 mg tablet 5 mg PO Q6H PRN pain #20 tabs 10/07/21 10/09/21 Rx meloxicam 15 mg tablet 15 mg PO DAILY PRN Pain (Scale 10/09/21 10/09/21 History Score 4-6) Allergies Allergy/AdvReac Type Severity Reaction Status Date / Time No Known Drug Allergies Allergy Verified 10/07/21 03:43 Exam Vital Signs (past 8 hours): - 10/09/21 09:03 10/09/21 09:05 10/09/21 11:02 Temperature 98.5 F Pulse Rate 127 H 80 Respiratory Rate 22 18 Blood Pressure 129/92 H 127/72 Pulse Oximetry 87 L 95 98 Oxygen Delivery Method Room Air Nasal Cannula Oxygen Flow Rate 2 10/09/21 11:47 10/09/21 12:20 10/09/21 12:00 Temperature 99.3 F Pulse Rate 110 H 124 H Respiratory Rate 20 21 Blood Pressure 125/67 135/76 Pulse Oximetry 96 95 Oxygen Delivery Method Room Air Oxygen Flow Rate 0 Oxygen Delivery Method Room Air Oxygen Flow Rate 0 Narrative Exam Narrative: Tender to palpation around the incisions Incisions have Steri-Strips in place and there is no erythema around the incisions No peritoneal findings Objective Labs Result Diagrams: 10/09/21 07:40 10/09/21 07:40 Labs: Laboratory Results - last 24 hr 10/09/21 10/09/21 10/09/21 07:40 07:40 07:58 WBC 15.2 H RBC 4.15 Hgb 11.9 L Hct 35.4 L MCV 85.3 MCH 28.7 MCHC 33.6 RDW 13.3 Plt Count 373 Neut % (Auto) 71.2 Lymph % (Auto) 22.3 L [place] % (Auto) 5.5 Eos % (Auto) 0.3 L Baso % (Auto) 0.7 Neut # (Auto) 76315 H Lymph # (Auto) 3400 [place] # (Auto) 800 Eos # (Auto) 0 Baso # (Auto) 100 Sodium 139 Potassium 3.5 Chloride 101 Carbon Dioxide 31 BUN 10 Creatinine 0.75 Estimated GFR > 60 BUN/Creatinine Ratio 13.3 Glucose 140 H Lactate 2.0 Calcium 9.0 Total Bilirubin 0.8 AST 92 H ALT 102 H Alkaline Phosphatase 95 Total Protein 8.4 H Albumin 4.8 Globulin 3.6 Albumin/Globulin Ratio 1.3 Lipase 40 Procalcitonin Serum , Qual Urine Color Urine Appearance Urine pH Ur Specific Rolfe Urine Protein Urine Glucose (UA) Urine Ketones Urine Occult Blood Urine Nitrate Urine Bilirubin Urine Urobilinogen Ur Leukocyte Esterase Urine RBC Urine WBC Urine Bacteria Ur Culture Indicated? SARS-CoV-2 (PCR) 10/09/21 10/09/21 10/09/21 07:58 07:58 09:01 WBC RBC Hgb Hct MCV MCH MCHC RDW Plt Count Neut % (Auto) Lymph % (Auto) [place] % (Auto) Eos % (Auto) Baso % (Auto) Neut # (Auto) Lymph # (Auto) [place] # (Auto) Eos # (Auto) Baso # (Auto) Sodium Potassium Chloride Carbon Dioxide BUN Creatinine Estimated GFR BUN/Creatinine Ratio Glucose Lactate Calcium Total Bilirubin AST ALT Alkaline Phosphatase Total Protein Albumin Globulin Albumin/Globulin Ratio Lipase Procalcitonin 0.09 Serum , Qual Negative Urine Color Urine Appearance Urine pH Ur Specific Rolfe Urine Protein Urine Glucose (UA) Urine Ketones Urine Occult Blood Urine Nitrate Urine Bilirubin Urine Urobilinogen Ur Leukocyte Esterase Urine RBC Urine WBC Urine Bacteria Ur Culture Indicated? SARS-CoV-2 (PCR) Negative 10/09/21 12:09 WBC RBC Hgb Hct MCV MCH MCHC RDW Plt Count Neut % (Auto) Lymph % (Auto) [place] % (Auto) Eos % (Auto) Baso % (Auto) Neut # (Auto) Lymph # (Auto) [place] # (Auto) Eos # (Auto) Baso # (Auto) Sodium Potassium Chloride Carbon Dioxide BUN Creatinine Estimated GFR BUN/Creatinine Ratio Glucose Lactate Calcium Total Bilirubin AST ALT Alkaline Phosphatase Total Protein Albumin Globulin Albumin/Globulin Ratio Lipase Procalcitonin Serum , Qual Urine Color Yellow Urine Appearance Clear Urine pH 5.0 Ur Specific Rolfe 1.010 Urine Protein Negative Urine Glucose (UA) Negative Urine Ketones Negative Urine Occult Blood 3+ H Urine Nitrate Negative Urine Bilirubin Negative Urine Urobilinogen 0.2 Ur Leukocyte Esterase Negative Urine RBC 5-10/hpf H Urine WBC None seen Urine Bacteria None seen Ur Culture Indicated? Cult not indicated SARS-CoV-2 (PCR) Assessment & Plan Assessment and plan (1) Post-operative pain: Status: Acute Plan Will recheck labs No indication to return to the operating room at this time If her condition deteriorates further or if her labs become significantly deranged we would proceed with a diagnostic laparoscopy Time Spent With Patient Critical Care time: I spent a total of [] minutes of critical care time on this patient's care today; this time is exclusive of procedural time. Quality VTE Deep Vein Thrombosis/Pulmonary Embolism Present on Admission: No
[2021-10-09] MEDS: HYDROMORPHONE 0.5 MG INJ IV ×3 (17:16→22:20)
[2021-10-09 17:35] LABS: Add Manual Diff / Slide Review NO; Basophils Absolute Auto 100 /uL (0-100); Basophils Percent Auto 0.4 % (0-2); Eosinophils Absolute Auto 0 /uL (0-450); Hematocrit 32.3 % (36-46); Hemoglobin 11.6 g/dL (12.0-16.0); Lymphocytes Absolute Auto 1500 /uL (1100-4500); Lymphocytes Percent Auto 12.4 % (25-40); Mean Corpuscular HGB Conc 35.8 % (30-36); Mean Corpuscular Hemoglobin 30.2 PG (26-34); Mean Corpuscular Volume 84.3 fL (80-100); Monocytes Absolute Auto 1100 /uL (0-900); Monocytes Percent Auto 9.1 % (3-14); Neutrophils Absolute Auto 9600 /uL (1500-7000); Neutrophils Percent Auto 78.1 % (50-75); Platelet Count 349 X10^3/uL (150-400); Red Blood Cell Count 3.83 X10^6/uL (4.0-5.2); Red Cell Distribution Width 13.1 % (11.6-14.8); White Blood Cell Count 12.3 X10^3/uL (4.5-11.0)
[2021-10-09 17:48] LABS: Alanine Aminotransferase 137 IU/L (<35); Albumin 4.3 g/dL (3.5-5.0); Albumin Globulin Ratio 1.3 (1.0-2.8); Alkaline Phosphatase 121 U/L (38-126); Aspartate Aminotransferase 108 IU/L (14-36); BUN Creatinine Ratio 9.2 (6-22); Bilirubin Total 1.3 mg/dL (0.2-1.3); Blood Urea Nitrogen 6 mg/dL (7-17); Calcium 8.8 mg/dL (8.4-10.2); Carbon Dioxide 31 mmol/L (22-32); Chloride 99 mmol/L (98-107); Estimated Glomerular Filt Rate > 60 mL/min (>60); Globulin 3.3 g/dL (1.7-4.1); Glucose 108 mg/dL (70-100); HEMOLYSIS < 15 (0-50); Potassium 4.2 mmol/L (3.4-5.1); Sodium 135 mmol/L (137-145); Total Protein 7.6 g/dL (6.3-8.2)
[2021-10-09] MEDS: HYDROCODONE/ACET 5/325 TABLET 1 TAB PO ×2 (17:49→21:52)
--- NOTE | 2021-10-09 19:51 | PC.NURSE ---
Addendum entered by Thais Banuelos R.N. 10/10/21 06:59: End of shift note. Care of patient from [id number]. Patient awake most of the night. c/o 7/10 pain, relieved intermittently with IV 0.5mg dilaudid and NORCO 5mg po[address] Dr[address] Wynn and gave him an update this morning and reported elevated bilirubin. Addendum entered by Thais Banuelos R.N. 10/10/21 01:46: Called Dr. Garg and informed Dr. Wynn would like him to consult on patient. Dr. Garg given update on patient's assessment, vitals and CT results. Addendum entered by Thais Banuelos R.N. 10/10/21 01:35: Called and read Dr. Wynn the CT chest results. Dr. Wynn requested that the hospitalist consult on the patient. I told Dr. Wynn I would notify Dr. Garg and request for him to give Dr. Wynn a call for doctor to doctor consult request. Addendum entered by Thais Banuelos R.N. 10/09/21 22:09: Called and notified Dr. Wynn of decreased oxygen saturation on RA. Patient c/o SOB at rest, is now on 2L, O2 Sats 95%. Patient informs when asked that she has a Nexplanon control implant for the past two years. Per Dr. Wynn's new orders get a chest CT to r/o PE. Original Note: Start of shift, patient c/o 5/10 RUQ pain at rest, with movement 8/10. O2 Saturation 87% on RA, patient unable to do CDB without crying out in pain. Placed on 2L NC, O2 Sats now 94%. Dilaudid 0,5mg IV given now for pain. IS placed at bedside with instruction.
--- NOTE | 2021-10-09 22:13 | DI.CT.S_ITS ---
PROCEDURE: CT ANGIO CHEST PE PROTOCOL INDICATIONS: r/t Chest PE TECHNIQUE: After the administration of intravenous contrast, 2 mm thick sections acquired from the pulmonary apices to the posterior costophrenic angles. 3-dimensional maximum intensity projection (MIP) coronal and sagittal reformats were then acquired through the thorax. For radiation dose reduction, the following was used: automated exposure control, adjustment of mA and/or kV according to patient size. COMPARISON: [facility], CT, CT ABDOMEN PELVIS W CON, 10/09/2021, 8:21. FINDINGS: Image quality: There is mild motion artifact. Pulmonary arteries: Pulmonary arteries demonstrate no intraluminal filling defects to suggest central pulmonary embolism. Evaluation of distal subsegmental branches is slightly limited by motion artifact. Lungs and pleura: There are increased confluent areas of consolidation in the lower lobes posteriorly. There is also mild consolidation inferiorly within the right middle lobe. A few linear areas of atelectasis are noted within the left lingula. There is a small right pleural effusion. The trachea and central airways appear patent. Mediastinum: Heart size is normal. There is a minimal amount of pericardial fluid inferiorly. No mediastinal or hilar adenopathy. Thoracic aorta is normal in caliber and enhancement. Esophagus is normal in caliber, without hiatal hernia. Bones and chest wall: No suspicious bony lesions. Ribs and thoracic spine appear intact throughout. Thyroid gland demonstrates no discrete nodules. No axillary or supraclavicular adenopathy. Abdomen: Visualized upper abdomen again demonstrates postsurgical changes consistent with recent cholecystectomy. A small amount of indistinct fluid within the gallbladder fossa with mild fat stranding likely represents residual postsurgical changes. No discrete loculated fluid collections identified. IMPRESSION: 1. No evidence of central pulmonary embolism. 2. Increased bibasilar consolidation within the lower lobes as well as consolidation in the inferior right middle lobe. The findings are suggestive of pneumonia possibly from aspiration. The differential also includes postsurgical atelectasis, but the degree of consolidation is atypical. 3. Small right pleural effusion. 4. Small amount of pericardial fluid inferiorly. 5. Small amount of fluid and fat stranding in the gallbladder fossa likely represents residual sequelae of recent surgery. No loculated fluid collections identified. Dictated by: Mick Avery M.D. on 10/10/2021 at 0:32 Approved by: Mick Avery M.D. on 10/10/2021 at 0:39
[2021-10-10 00:55] VITALS: BP 102/62; PULSE 96; RESP 18; TEMP 37.2; O2SAT 96
[2021-10-10] MEDS: HYDROCODONE/ACET 5/325 TABLET 1 TAB PO ×2 (01:26→05:39)
--- NOTE | 2021-10-10 02:05 | PM.CN ---
History of Present Illness Consult details Date Patient Seen: 10/10/21 Time Patient Seen: 06:00 Chief complaint: Fever, vomiting. had Gallbladder removal Sat Narrative: Ms. Rajan is a 26W with no previous medical history who recently was admitted for abdominal pain, found to have cholecystitis and underwent cholecystectomy on 10/07. She was able to be discharged. She was then readmitted on 10/09 for abdominal pain, tachycardia. She had been having vomiting prior to her first admission. She had repeat CT on admission and this is being monitored by surgery for any complication that would require operative intervention. Tonight she developed shortness of breath with a drop in her oxygen saturation and she was placed on 2L nasal cannula. CTA of her chest was ordered and was negative for PE, but did show bilateral lower lobe consolidation and right middle lobe consolidation, suspicious for pneumonia. Consultation was recommended for medicine to help manage her respiratory issues. Family history: family history of lung disease, she is not able to say what disease Social history: vapes, no tobacco, alcohol, or drug use Meds Home Medications and Allergies Home Medications Medication Instructions Recorded Confirmed Type duloxetine 40 mg capsule,delayed 40 mg PO DAILY 10/07/21 10/09/21 History release oxycodone 5 mg tablet 5 mg PO Q6H PRN pain #20 tabs 10/07/21 10/09/21 Rx meloxicam 15 mg tablet 15 mg PO DAILY PRN Pain (Scale 10/09/21 10/09/21 History Score 4-6) Allergies Allergy/AdvReac Type Severity Reaction Status Date / Time No Known Drug Allergies Allergy Verified 10/07/21 03:43 Review of Systems Review of Systems Narrative: 14 systems reviewed and negative aside from what is noted in HPI Exam Vital Signs (past 8 hours): - 10/09/21 20:02 10/09/21 20:04 10/09/21 19:40 Temperature 99.9 F H Pulse Rate 112 H 115 H 108 H Respiratory Rate 22 18 Blood Pressure 117/70 Pulse Oximetry 92 95 87 L Oxygen Delivery Method Oxygen Flow Rate 2 4 0 10/09/21 21:55 10/09/21 21:55 10/09/21 20:00 Temperature Pulse Rate Respiratory Rate Blood Pressure Pulse Oximetry 98 94 Oxygen Delivery Method Room Air Oxygen Flow Rate 4 2 10/10/21 00:55 Temperature 98.9 F Pulse Rate 96 H Respiratory Rate 18 Blood Pressure 102/62 Pulse Oximetry 96 Oxygen Delivery Method Oxygen Flow Rate 2 Oxygen Delivery Method Room Air Oxygen Flow Rate 2 Narrative Exam Narrative: GEN: in distress from abdominal pain HEENT: moist mucous membranes, PERRL NECK: trachea midline, no JVD CV: regular rate and rhythm, no murmurs PULM: basilar coarse breath sounds ABD: tender to palpation around incision, soft EXT: warm and well perfused with no edema NEURO: awake, alert, no focal deficits Objective Labs Result Diagrams: 10/09/21 17:30 10/09/21 17:30 Labs: Laboratory Results - last 24 hr 10/09/21 10/09/21 10/09/21 07:40 07:40 07:58 WBC 15.2 H RBC 4.15 Hgb 11.9 L Hct 35.4 L MCV 85.3 MCH 28.7 MCHC 33.6 RDW 13.3 Plt Count 373 Neut % (Auto) 71.2 Lymph % (Auto) 22.3 L Emanuel % (Auto) 5.5 Eos % (Auto) 0.3 L Baso % (Auto) 0.7 Neut # (Auto) 63648 H Lymph # (Auto) 3400 Emanuel # (Auto) 800 Eos # (Auto) 0 Baso # (Auto) 100 Sodium 139 Potassium 3.5 Chloride 101 Carbon Dioxide 31 BUN 10 Creatinine 0.75 Estimated GFR > 60 BUN/Creatinine Ratio 13.3 Glucose 140 H Lactate 2.0 Calcium 9.0 Total Bilirubin 0.8 AST 92 H ALT 102 H Alkaline Phosphatase 95 Total Protein 8.4 H Albumin 4.8 Globulin 3.6 Albumin/Globulin Ratio 1.3 Lipase 40 Procalcitonin Serum , Qual Urine Color Urine Appearance Urine pH Ur Specific [place] Urine Protein Urine Glucose (UA) Urine Ketones Urine Occult Blood Urine Nitrate Urine Bilirubin Urine Urobilinogen Ur Leukocyte Esterase Urine RBC Urine WBC Urine Bacteria Ur Culture Indicated? SARS-CoV-2 (PCR) 10/09/21 10/09/21 10/09/21 07:58 07:58 09:01 WBC RBC Hgb Hct MCV MCH MCHC RDW Plt Count Neut % (Auto) Lymph % (Auto) Emanuel % (Auto) Eos % (Auto) Baso % (Auto) Neut # (Auto) Lymph # (Auto) Emanuel # (Auto) Eos # (Auto) Baso # (Auto) Sodium Potassium Chloride Carbon Dioxide BUN Creatinine Estimated GFR BUN/Creatinine Ratio Glucose Lactate Calcium Total Bilirubin AST ALT Alkaline Phosphatase Total Protein Albumin Globulin Albumin/Globulin Ratio Lipase Procalcitonin 0.09 Serum , Qual Negative Urine Color Urine Appearance Urine pH Ur Specific [place] Urine Protein Urine Glucose (UA) Urine Ketones Urine Occult Blood Urine Nitrate Urine Bilirubin Urine Urobilinogen Ur Leukocyte Esterase Urine RBC Urine WBC Urine Bacteria Ur Culture Indicated? SARS-CoV-2 (PCR) Negative 10/09/21 10/09/21 10/09/21 12:09 17:30 17:30 WBC 12.3 H RBC 3.83 L Hgb 11.6 L Hct 32.3 L MCV 84.3 MCH 30.2 MCHC 35.8 RDW 13.1 Plt Count 349 Neut % (Auto) 78.1 H Lymph % (Auto) 12.4 L Emanuel % (Auto) 9.1 Eos % (Auto) 0.0 L Baso % (Auto) 0.4 Neut # (Auto) 9600 H Lymph # (Auto) 1500 Emanuel # (Auto) 1100 H Eos # (Auto) 0 Baso # (Auto) 100 Sodium 135 L Potassium 4.2 Chloride 99 Carbon Dioxide 31 BUN 6 L Creatinine 0.65 Estimated GFR > 60 BUN/Creatinine Ratio 9.2 Glucose 108 H Lactate Calcium 8.8 Total Bilirubin 1.3 AST 108 H ALT 137 H Alkaline Phosphatase 121 Total Protein 7.6 Albumin 4.3 Globulin 3.3 Albumin/Globulin Ratio 1.3 Lipase Procalcitonin Serum , Qual Urine Color Yellow Urine Appearance Clear Urine pH 5.0 Ur Specific [place] 1.010 Urine Protein Negative Urine Glucose (UA) Negative Urine Ketones Negative Urine Occult Blood 3+ H Urine Nitrate Negative Urine Bilirubin Negative Urine Urobilinogen 0.2 Ur Leukocyte Esterase Negative Urine RBC 5-10/hpf H Urine WBC None seen Urine Bacteria None seen Ur Culture Indicated? Cult not indicated SARS-CoV-2 (PCR) PFSH Social History household members: none Tobacco & Substance Use Smoking Status: Current some day smoker alcohol intake: current Assessment & Plan Assessment & Plan narrative: Ms. Rajan is a 26W s/p recent cholecystectomy for cholecystitis readmitted with abdominal pain found to have hypoxemia and pneumonia. 1. Aspiration pneumonia causing acute respiratory failure -suspect etiology is aspiration pneumonia secondary to vomiting -CTA negative for PE -COVID negative -small pericardial effusion noted of unclear significance, raises possibility of viral etiology, order respiratory panel -due to pericardial fluid, order troponin, but doubt cardiac etiology -other less likely etiology to consider is atelectasis, and less likely rare complication from cholecystectomy including bile leak, paralyzed right hemidiaphragm -contine O2 for goal >93% -sputum culture ordered -start zosyn -wean oxygen as able -plan for 7-10 day course of antibiotics, can switch to PO augmentin 875/125 BID on discharge 2. Abdominal pain and vomiting s/p cholecystectomy for recent cholecystitis -surgery managing CODE: Full Proxy: [place] Rajan I have utilized all available resources to reconcile the patient's home medications Time Spent With Patient Critical Care time: I spent a total of [] minutes of critical care time on this patient's care today; this time is exclusive of procedural time.
[2021-10-10] MEDS: HYDROMORPHONE 0.5 MG INJ IV ×7 (02:40→19:46)
[2021-10-10] MEDS: PIPERACILLIN/TAZO 3.375 GM in SODIUM CHLORIDE 0.9% 100 ML IV ×3 (02:42→18:03)
[2021-10-10 04:00] VITALS: BP 106/61; PULSE 98; RESP 18; TEMP 37.1; O2SAT 91
--- NOTE | 2021-10-10 05:09 | DI.RAD.S_ITS ---
PROCEDURE: XR CHEST 1V INDICATIONS: s/p cholecystectomy worse sob, worse pna? elevated diaphrag? TECHNIQUE: One view of the chest was acquired. COMPARISON: [facility], CT, CT ANGIO CHEST PE PROTOCOL, 10/09/2021, 22:18. FINDINGS: Surgical changes and devices: None. Lungs and pleura: Trace right-sided pleural fluid collection. Patchy right basilar and left perihilar lung opacities. Right hemidiaphragm is mildly elevated. Mediastinum: Mediastinal contours appear normal. Heart size is normal. Bones and chest wall: No suspicious bony lesions. Overlying soft tissues appear unremarkable. IMPRESSION: 1. Patchy bilateral lung airspace opacities concerning for pneumonia. 2. Trace right-sided pleural fluid collection. 3. Mild elevation right hemidiaphragm. Dictated by: Harmony Preston MD, PhD on 10/10/2021 at 8:01 Approved by: Harmony Preston MD, PhD on 10/10/2021 at 8:03
[2021-10-10] MEDS: ONDANSETRON 4 MG/2 ML INJ IV ×2 (05:40→19:44)
[2021-10-10 05:42] LABS: Add Manual Diff / Slide Review NO; Basophils Absolute Auto 0 /uL (0-100); Basophils Percent Auto 0.6 % (0-2); Eosinophils Absolute Auto 100 /uL (0-450); Eosinophils Percent Auto 0.8 % (2-4); Hemoglobin 10.8 g/dL (12.0-16.0); Lymphocytes Absolute Auto 1900 /uL (1100-4500); Lymphocytes Percent Auto 23.8 % (25-40); Mean Corpuscular HGB Conc 34.8 % (30-36); Mean Corpuscular Hemoglobin 29.5 PG (26-34); Mean Corpuscular Volume 84.6 fL (80-100); Monocytes Absolute Auto 700 /uL (0-900); Monocytes Percent Auto 9.5 % (3-14); Neutrophils Absolute Auto 5100 /uL (1500-7000); Neutrophils Percent Auto 65.3 % (50-75); Platelet Count 311 X10^3/uL (150-400); Red Blood Cell Count 3.66 X10^6/uL (4.0-5.2); Red Cell Distribution Width 13.3 % (11.6-14.8); White Blood Cell Count 7.9 X10^3/uL (4.5-11.0)
[2021-10-10] MEDS: LACTATED RINGERS 1,000 ML 125 ML IV ×2 (05:44→17:00)
[2021-10-10 05:46] LABS: Alanine Aminotransferase 107 IU/L (<35); Albumin 3.7 g/dL (3.5-5.0); Albumin Globulin Ratio 1.2 (1.0-2.8); Alkaline Phosphatase 110 U/L (38-126); Aspartate Aminotransferase 67 IU/L (14-36); BUN Creatinine Ratio 12.5 (6-22); Bilirubin Total 2.3 mg/dL (0.2-1.3); Blood Urea Nitrogen 8 mg/dL (7-17); Calcium 8.5 mg/dL (8.4-10.2); Carbon Dioxide 29 mmol/L (22-32); Chloride 101 mmol/L (98-107); Estimated Glomerular Filt Rate > 60 mL/min (>60); Globulin 3.1 g/dL (1.7-4.1); Glucose 78 mg/dL (70-100); HEMOLYSIS < 15 (0-50); Potassium 3.9 mmol/L (3.4-5.1); Sodium 134 mmol/L (137-145); Total Protein 6.8 g/dL (6.3-8.2)
[2021-10-10 05:57] LABS: Troponin I < 0.012 ng/mL (0.01-0.034)
[2021-10-10 06:54] LABS: Adenovirus Not Detected (Not Detect); B. parapertussis Not Detected (Not Detecte); Bordetella pertussis Not Detected (Not Detecte); Chlamydophila pneumoniae Not Detected (Not Detect); Coronavirus 229E Not Detected (Not Detect); Coronavirus HKU1 Not Detected (Not Detect); Coronavirus NL 63 Not Detected (Not Detect); Coronavirus OC43 Not Detected (Not Detect); Human Metapneumovirus Not Detected (Not Detect); Human Rhinovirus/Enterovirus Not Detected (Not Detect); Influenza A Not Detected (Not Detect); Influenza B Not Detected (Not Detect); Mycoplasma pneumoniae Not Detected (Not Detect); Parainfluenza Virus 1 Not Detected (Not Detect); Parainfluenza Virus 2 Not Detected (Not Detect); Parainfluenza Virus 3 Not Detected (Not Detect); Parainfluenza Virus 4 Not Detected (Not Detect); Respiratory Syncytial Virus Not Detected (Not Detect); SARS- CoV-2 Not Detected (Not Detecte)
--- NOTE | 2021-10-10 07:43 | DI.NM.S_ITS ---
PROCEDURE: NM HIDA NO EJECTION FRACTION RADIOPHARMACEUTICAL: 5.5 mCi Tc-99m mebrofenin IV. INDICATIONS: Bile leak TECHNIQUE: Following intravenous administration of Tc-99m mebrofenin, sequential anterior abdominal images were obtained through at least 60 minutes. COMPARISON: [facility], CT, CT ABDOMEN PELVIS W CON, 10/09/2021, 8:21. [facility], CT, CT ANGIO CHEST PE PROTOCOL, 10/09/2021, 22:18. FINDINGS: There is normal hepatic radiopharmaceutical uptake and excretion into the biliary system. Radiopharmaceutical is seen in the right subhepatic space and gallbladder fossa extending inferiorly along the right pericolic gutter into the pelvis. There is some radiopharmaceutical within the bowel also. IMPRESSION: Findings consistent with bile leak. Dictated by: José Miguel Gutierrez M.D. on 10/10/2021 at 10:16 Approved by: José Miguel Gutierrez M.D. on 10/10/2021 at 10:20
[2021-10-10 08:10] VITALS: BP 106/51; PULSE 83; RESP 18; TEMP 36.8; O2SAT 94
--- NOTE | 2021-10-10 08:33 | PC.NURSE ---
Patient picked up via wheelchair and taken to NM test. Patient has been NPO except medications overnight. Reports pain is mostly at a 4/10 constant to RUQ then increases to more severe with movement and moves to the front mid abdomen. Patient reports she has been trying to use the incentive spirometer upto 500cc at this time. Patient up to void then taken for test. Continue to follow.
--- NOTE | 2021-10-10 10:56 | PM.CALLCOV.1 ---
Call Coverage Note Note Date of Patient Contact: 10/10/21 Time of Patient Contact: 10:56 Narrative of Care Provided: HIDA scan reviewed demonstrates mildly suspected from the cystic stump. She will need transfer to a facility with ERCP capability for stent placement.
--- NOTE | 2021-10-10 11:50 | CM.DANOTE ---
Initial Discharge Planning Assessment: Case received. EMR reviewed. Met with patient and discussed role. PCP: Marc Duran Payer: Amadeo Pulliam 26 year old single female admitted yesterday morning, 10/09/21 for abdominal pain, fever, vomiting. She underwent surgery here on 10/07/21 and was discharged home that pm. She is now POD#3. She is currently NPO receiving IVFs and IV pain meds for abdo pain. Surgeon to be in this morning. She is lying in bed in mild distress. She will have a Hida scan today per nurse. She works at [employer] and her partner Surinder is on a long deployment. [place]. She has co-worker friends who can transport her upon discharge and provide some assistance as needed. P: Continue to follow for DCP needs. [place]. Discharge Planning/Care Management Advanced directive, confirm from FAMILY Start: 10/09/21 12:15 Freq: Q24H Status: Active Protocol: Document 10/09/21 12:22 MANINDER (Rec: 10/09/21 12:22 MANINDER [id number]) Advance Directive, confirm on record Time 12:22 Person contacted patient Copy received No CM Discharge Assessment Start: 10/10/21 11:46 Freq: Status: Active Protocol: Document 10/10/21 11:47 SJ (Rec: 10/10/21 11:50 SJ [id number]) Discharge Planning Assessment Assigned Document Analyst Petra Dong RN/DCP Advance Directives? No Advance Directives on File No History Provided By Patient,Medical Record Has Patient been admitted in last 30 Yes days? Prior Living Arrangements Apartment/Condo Household Members none Comment Her partner Surinder is currently overseas in Type of transporation used prior to Drives own vehicle admit Independent with ADL's Yes Is patient alert and oriented? Yes Caregiver for Another No Barriers to Discharge Yes Comment Possible barrier in that she lives alone in the barracks at [employer]. Her partner Surinder is currently overseas and not expected to return to [facility] in quite a while. 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 Discharge Plan Home Transportation Arrangement Family or friends Referrals Initiated None needed Whiteboard Updated in Patient Room with Yes name and ext. # of Document Analyst Review Status In Process Next Review Type Continued Stay Review
[2021-10-10 13:00] VITALS: BP 119/66; PULSE 105; RESP 16; TEMP 37.8; O2SAT 94
--- NOTE | 2021-10-10 16:00 | PM.PN.1 ---
Subjective Subjective Date Patient Seen: 10/10/21 Time Patient Seen: 16:00 Interval history: Increasing abdominal pain. No nausea. Low grade fever. Exam Vital Signs (past 8 hours): - 10/10/21 08:10 10/10/21 13:00 Temperature 98.3 F 100.0 F H Pulse Rate 83 105 H Respiratory Rate 18 16 Blood Pressure 106/51 L 119/66 Pulse Oximetry 94 94 Oxygen Flow Rate 0 0 Oxygen Delivery Method Room Air Oxygen Flow Rate 0 Narrative Exam Narrative: Gen-Adult woman alert and oriented Abdomen-Tender to palpation incisions CDI Objective Labs Result Diagrams: 10/10/21 05:21 10/10/21 05:21 Labs: Laboratory Results - last 24 hr 10/09/21 10/09/21 10/10/21 17:30 17:30 05:21 WBC 12.3 H 7.9 RBC 3.83 L 3.66 L Hgb 11.6 L 10.8 L Hct 32.3 L 31.0 L MCV 84.3 84.6 MCH 30.2 29.5 MCHC 35.8 34.8 RDW 13.1 13.3 Plt Count 349 311 Neut % (Auto) 78.1 H 65.3 Lymph % (Auto) 12.4 L 23.8 L Mcpherson % (Auto) 9.1 9.5 Eos % (Auto) 0.0 L 0.8 L Baso % (Auto) 0.4 0.6 Neut # (Auto) 9600 H 5100 Lymph # (Auto) 1500 1900 Mcpherson # (Auto) 1100 H 700 Eos # (Auto) 0 100 Baso # (Auto) 100 0 Sodium 135 L Potassium 4.2 Chloride 99 Carbon Dioxide 31 BUN 6 L Creatinine 0.65 Estimated GFR > 60 BUN/Creatinine Ratio 9.2 Glucose 108 H Calcium 8.8 Total Bilirubin 1.3 AST 108 H ALT 137 H Alkaline Phosphatase 121 Troponin I Total Protein 7.6 Albumin 4.3 Globulin 3.3 Albumin/Globulin Ratio 1.3 Chlamy pneumoniae PCR Adenovirus (PCR) B. pertussis DNA (PCR) B.parapertussis DNA PCR Coronavirus OC43 (PCR) Coronavirus HKU1 (PCR) Coronavirus 229E (PCR) SARS-CoV-2 (PCR) Coronavirus NL63 (PCR) Human Metapneumovir PCR Influenza Type A (PCR) Influenza Type B (PCR) M. pneumoniae (PCR) Parainfluenza 1 (PCR) Parainfluenza 2 (PCR) Parainfluenza 3 (PCR) Parainfluenza 4 (PCR) RSV (PCR) Entero/Rhino (PCR) 10/10/21 10/10/21 10/10/21 05:21 05:21 05:52 WBC RBC Hgb Hct MCV MCH MCHC RDW Plt Count Neut % (Auto) Lymph % (Auto) Mcpherson % (Auto) Eos % (Auto) Baso % (Auto) Neut # (Auto) Lymph # (Auto) [place]pherson # (Auto) Eos # (Auto) Baso # (Auto) Sodium 134 L Potassium 3.9 Chloride 101 Carbon Dioxide 29 BUN 8 Creatinine 0.64 Estimated GFR > 60 BUN/Creatinine Ratio 12.5 Glucose 78 Calcium 8.5 Total Bilirubin 2.3 H AST 67 H ALT 107 H Alkaline Phosphatase 110 Troponin I < 0.012 Total Protein 6.8 Albumin 3.7 Globulin 3.1 Albumin/Globulin Ratio 1.2 Chlamy pneumoniae PCR Not detected Adenovirus (PCR) Not detected B. pertussis DNA (PCR) Not detected B.parapertussis DNA PCR Not detected Coronavirus OC43 (PCR) Not detected Coronavirus HKU1 (PCR) Not detected Coronavirus 229E (PCR) Not detected SARS-CoV-2 (PCR) Not detected Coronavirus NL63 (PCR) Not detected Human Metapneumovir PCR Not detected Influenza Type A (PCR) Not detected Influenza Type B (PCR) Not detected M. pneumoniae (PCR) Not detected Parainfluenza 1 (PCR) Not detected Parainfluenza 2 (PCR) Not detected Parainfluenza 3 (PCR) Not detected Parainfluenza 4 (PCR) Not detected RSV (PCR) Not detected Entero/Rhino (PCR) Not detected PFSH Social History household members: none Smoking Status: Current some day smoker alcohol intake: current Assessment & Plan Assessment & Plan narrative: 26F Sp laparoscopic cholecystectomy 10/07 for acute cholecystitis with a post operative bile leak. Discussed findings of HIDA scan with the patient demonstrates bile leak, CT A/P small fluid collection in gallbladder fossa, TB 2.3 today, WBC 8. Arranging for transfer to [facility] for ERCP and stent placement. Time Spent With Patient Critical Care time: I spent a total of [] minutes of critical care time on this patient's care today; this time is exclusive of procedural time. Quality VTE Deep Vein Thrombosis/Pulmonary Embolism Present on Admission: No
--- NOTE | 2021-10-10 17:10 | PM.PN.1 ---
Subjective Subjective Interval history: Hospitalist consult follow-up visit. History of chief complaint pertinent consultation as per initial consultation: Ms. Rajan is a 26W with no previous medical history who recently was admitted for abdominal pain, found to have cholecystitis and underwent cholecystectomy on 10/07. She was able to be discharged. She was then readmitted on 10/09 for abdominal pain, tachycardia. She had been having vomiting prior to her first admission. She had repeat CT on admission and this is being monitored by surgery for any complication that would require operative intervention. Tonight she developed shortness of breath with a drop in her oxygen saturation and she was placed on 2L nasal cannula. CTA of her chest was ordered and was negative for PE, but did show bilateral lower lobe consolidation and right middle lobe consolidation, suspicious for pneumonia. Consultation was recommended for medicine to help manage her respiratory issues Exam Vital Signs (past 8 hours): - 10/10/21 13:00 Temperature 100.0 F H Pulse Rate 105 H Respiratory Rate 16 Blood Pressure 119/66 Pulse Oximetry 94 Oxygen Flow Rate 0 Oxygen Delivery Method Room Air Oxygen Flow Rate 0 Narrative Exam Narrative: GEN: in distress from abdominal pain. In no respiratory distress. HEENT: moist mucous membranes, PERRL NECK: trachea midline, no JVD CV: regular rate and rhythm, no murmurs PULM: Adequate air entry except for decreased at the bases. ABD: tender to palpation around incision, soft EXT: warm and well perfused with no edema NEURO: awake, alert, no localized l deficits Objective Labs Result Diagrams: 10/10/21 05:21 10/10/21 05:21 Labs: Laboratory Results - last 24 hr 10/09/21 10/09/21 10/10/21 17:30 17:30 05:21 WBC 12.3 H 7.9 RBC 3.83 L 3.66 L Hgb 11.6 L 10.8 L Hct 32.3 L 31.0 L MCV 84.3 84.6 MCH 30.2 29.5 MCHC 35.8 34.8 RDW 13.1 13.3 Plt Count 349 311 Neut % (Auto) 78.1 H 65.3 Lymph % (Auto) 12.4 L 23.8 L Weston % (Auto) 9.1 9.5 Eos % (Auto) 0.0 L 0.8 L Baso % (Auto) 0.4 0.6 Neut # (Auto) 9600 H 5100 Lymph # (Auto) 1500 1900 [place] # (Auto) 1100 H 700 Eos # (Auto) 0 100 Baso # (Auto) 100 0 Sodium 135 L Potassium 4.2 Chloride 99 Carbon Dioxide 31 BUN 6 L Creatinine 0.65 Estimated GFR > 60 BUN/Creatinine Ratio 9.2 Glucose 108 H Calcium 8.8 Total Bilirubin 1.3 AST 108 H ALT 137 H Alkaline Phosphatase 121 Troponin I Total Protein 7.6 Albumin 4.3 Globulin 3.3 Albumin/Globulin Ratio 1.3 Chlamy pneumoniae PCR Adenovirus (PCR) B. pertussis DNA (PCR) B.parapertussis DNA PCR Coronavirus OC43 (PCR) Coronavirus HKU1 (PCR) Coronavirus 229E (PCR) SARS-CoV-2 (PCR) Coronavirus NL63 (PCR) Human Metapneumovir PCR Influenza Type A (PCR) Influenza Type B (PCR) M. pneumoniae (PCR) Parainfluenza 1 (PCR) Parainfluenza 2 (PCR) Parainfluenza 3 (PCR) Parainfluenza 4 (PCR) RSV (PCR) Entero/Rhino (PCR) 10/10/21 10/10/21 10/10/21 05:21 05:21 05:52 WBC RBC Hgb Hct MCV MCH MCHC RDW Plt Count Neut % (Auto) Lymph % (Auto) [place] % (Auto) Eos % (Auto) Baso % (Auto) Neut # (Auto) Lymph # (Auto) [place] # (Auto) Eos # (Auto) Baso # (Auto) Sodium 134 L Potassium 3.9 Chloride 101 Carbon Dioxide 29 BUN 8 Creatinine 0.64 Estimated GFR > 60 BUN/Creatinine Ratio 12.5 Glucose 78 Calcium 8.5 Total Bilirubin 2.3 H AST 67 H ALT 107 H Alkaline Phosphatase 110 Troponin I < 0.012 Total Protein 6.8 Albumin 3.7 Globulin 3.1 Albumin/Globulin Ratio 1.2 Chlamy pneumoniae PCR Not detected Adenovirus (PCR) Not detected B. pertussis DNA (PCR) Not detected B.parapertussis DNA PCR Not detected Coronavirus OC43 (PCR) Not detected Coronavirus HKU1 (PCR) Not detected Coronavirus 229E (PCR) Not detected SARS-CoV-2 (PCR) Not detected Coronavirus NL63 (PCR) Not detected Human Metapneumovir PCR Not detected Influenza Type A (PCR) Not detected Influenza Type B (PCR) Not detected M. pneumoniae (PCR) Not detected Parainfluenza 1 (PCR) Not detected Parainfluenza 2 (PCR) Not detected Parainfluenza 3 (PCR) Not detected Parainfluenza 4 (PCR) Not detected RSV (PCR) Not detected Entero/Rhino (PCR) Not detected PFSH Social History household members: none Smoking Status: Current some day smoker alcohol intake: current Assessment & Plan Assessment & Plan narrative: Ms. Rajan is a 26W s/p recent cholecystectomy for cholecystitis readmitted with abdominal pain found to have hypoxemia and pneumonia. 1. Aspiration pneumonia causing acute respiratory failure. Apparently failure has resolved and patient is adequate saturation on room air. Suspect etiology is aspiration pneumonia secondary to vomiting. Currently being treated with Zosyn. Small pericardial effusion noted of unclear significance, raises possibility of viral etiology, order respiratory panel. No virus detected on panel taken. Due to pericardial fluid, troponin was ordered. Troponin is normal. Sputum culture remains pending. However blood cultures have been negative. Leukocytosis has resolved to normal white blood count. Plan for 7-10 day course of antibiotics, can switch to PO augmentin 875/125 BID on discharge to finish the 7-10 days. Continue to follow labs. 2. Abdominal pain and vomiting s/p cholecystectomy for recent cholecystitis Surgery managing CODE: Watch Dial Printer Spent With Patient Critical Care time: I spent a total of [] minutes of critical care time on this patient's care today; this time is exclusive of procedural time. Quality VTE Deep Vein Thrombosis/Pulmonary Embolism Present on Admission: No
[2021-10-10 17:30] VITALS: BP 133/69; PULSE 107; RESP 17; TEMP 37.9; O2SAT 93
--- NOTE | 2021-10-10 18:57 | PC.NURSE ---
Plan for roller picker for transfer to [facility] at 1950. Report called to Critical Decision Unit, Jacinto [phone] ext [phone]. Patient aware and agreeable with plan of care.
--- NOTE | 2021-10-10 19:59 | PC.NURSE ---
Addendum entered by Thais Banuelos R.N. 10/10/21 20:16: Called [facility] spoke with RN on Decision Unit, gave update about pain med and nausea med given. Original Note: At 1944 Patient AAOX4, calm, c/o 8/10 abd pain with nausea. Gave Zofran 4mg IV and Dilaudid 0.5mg IV. [facility] transport on unit, gave report valeria Cortes and 2 other crew members. Patient up to [facility] to void before transport. PIV SL. IV Zofran stopped, gave to Sebastian and informed only 25% infused. Needs to finish infusing at 25ml/hr. Patient left [facility] acute care unit with [facility] transport at 1954. Patient has her cell phone, glasses, Id and personal belongings with her. Report called by Pranav PEREZ at change of shift. Call placed to [facility] at [phone] to inform patient is in route.
== END 2021-10-10 20:21 | disposition short-term general hospital (02) | DRG 393 ==
LOC: ED 07:45 → AC 10:51
PROVIDERS: Internal Medicine; Admitting Provider Surgery; Emergency Provider Emergency Medicine; PCP Student in an Organized Health Care Education/Training Program; Referring Provider Emergency Medicine; Visit Provider Surgery
DX: K91.89 Other postprocedural complications and disorders of digestive system (principal); J69.0 Pneumonitis due to inhalation of food and vomit; J96.00 Acute respiratory failure, unspecified whether with hypoxia or hypercapnia; I31.3 Pericardial effusion (noninflammatory); R11.10 Vomiting, unspecified; F17.290 Nicotine dependence, other tobacco product, uncomplicated; Z20.822 Contact with and (suspected) exposure to COVID-19
CPT/HCPCS: 36415; 71045; 71275; 74177; 78226; 80053; 81001; 83605; 83690; 84145; 84484; 84703; 85025; 87070; 87205; 87633; 87635; 96374; 96375; 96376; 99284; 99285; A9537; C9803; G0378; J1170; J1885; J2060; J2270; J2405; J2543; Q9967